=== PATIENT | male | born 1960 | race Caucasian/White ===

== ENCOUNTER 2020-04-08 13:53 | Emergency (ER) | payer OTHER ==
[~2020-04-08] VITALS: Ht 177.8 cm; Wt 77.3 kg
[2020-04-08 18:40] VITALS: BP 137/90
== END 2020-04-08 19:15 | disposition home or self-care (01) ==
LOC: EMS 14:01
DX: S42.401A Unspecified fracture of lower end of right humerus, initial encounter for closed fracture (principal); Z88.0 Allergy status to penicillin; Z88.6 Allergy status to analgesic agent; W19.XXXA Unspecified fall, initial encounter; Y93.89 Activity, other specified; Y92.89 Other specified places as the place of occurrence of the external cause; Y99.8 Other external cause status
CPT/HCPCS: 29105; 73200; 73060-TC; 73080-TC; Z7502